=== PATIENT | female | born 1970 | race Asian ===

== ENCOUNTER → 2018-09-24 10:30 | Outpatient (CLI) | payer OTHER, SELFPAY ==
--- NOTE | 2018-09-24 | DI.CT.S_ITS ---
PROCEDURE: CT CERVICAL SPINE WO CON INDICATIONS: SPONDYLOSIS TECHNIQUE: Noncontrast 3 mm thick sections acquired from the skull base to the T4 level. Sagittal and coronal reformats were then constructed. For radiation dose reduction, the following was used: automated exposure control, adjustment of mA and/or kV according to patient size. COMPARISON: [facility], , C-SPINE WITHOUT CONTRAST, 06/04/2016, 13:11. [facility], CR, CERVICAL SPINE 2 OR 3 VIEWS, 08/28/2016, 14:25. FINDINGS: Image quality: Excellent. Bones: No fractures or dislocations. Visualized superior ribs are intact. No suspicious lytic or blastic lesions are seen. Postoperative changes are seen, with an anterior cervical spine fusion plate at the C4-C6 levels. The fusion plate appears well seated. No findings of hardware failure or hardware loosening are seen. Disc spacers are seen throughout the fused region. Soft tissues: Prevertebral soft tissues are normal in thickness. No paravertebral hematomas. No apical pneumothoraces. IMPRESSION: Normal postoperative study. Dictated by: Alexander Lange M.D. on 09/24/2018 at 12:10 Approved by: Alexander Lange M.D. on 09/24/2018 at 12:12
== END ==
PROVIDERS: Visit Provider Orthopaedic Surgery Orthopaedic Surgery of the Spine
DX: M47.22 Other spondylosis with radiculopathy, cervical region (principal); Z98.1 Arthrodesis status
CPT/HCPCS: 72125

== ENCOUNTER 2020-01-06 21:28 | Emergency (ER) | payer OTHER, SELFPAY ==
[2020-01-06 21:44] VITALS: BP 120/72; PULSE 87; RESP 20; TEMP 36.8; O2SAT 97; BMI 23.9
--- NOTE | 2020-01-06 21:51 | ED_ITS ---
HPI - General Adult General Chief complaint: Abdominal Pain Stated complaint: states fibroids is hurting her alot Time Seen by Provider: 01/06/20 21:44 Source: patient Mode of arrival: Ambulatory Limitations: no limitations History of Present Illness HPI narrative: 49-year-old female. History of fibroids. Has had these treated in the past but early this year she was told that the fibroids had returned. She was also diagnosed with an ovarian cyst on the left side earlier this year. She states she was in her normal state health until couple days ago when she started to have left lower quadrant says left upper quadrant pain. Patient is not currently on any control. She states she is having irregular menstrual cycles. She was told that potentially she is premenopausal. She is not currently having any vaginal discharge or bleeding. No urinary symptoms. Has had a in the past. No other abdominal surgeries. Some nausea no vomiting. Has not tried anything for symptoms prior to arrival. Related Data Home Medications Medication Instructions Recorded Confirmed ascorbic acid (vitamin C) 500 mg PO QDAY #0 08/28/16 multivitamin [Multiple Vitamins] 1 tab PO QDAY #0 08/28/16 Previous Rx's Medication Instructions Recorded ACETAMINOPHEN 0 mg PO Q4HP PRN #30 08/29/16 hydroxyzine pamoate [Vistaril] 25 - 50 mg PO Q4HP PRN #30 cap 08/29/16 oxycodone 5 - 10 mg PO Q3HP PRN #60 tab 08/29/16 hydrocodone-acetaminophen [[place]] 1 tab PO Q6H PRN #7 tab 01/06/20 Allergies Allergy/AdvReac Type Severity Reaction Status Date / Time Sulfa (Sulfonamide Allergy Severe ANAPHYLAXIS Verified 01/06/20 21:44 Antibiotics) [SULFA (SULFONAMIDE ANTIBIOTICS)] Review of Systems Constitutional Constitutional: Denies fever(s) and Denies headache(s) ENT Ears, Nose, Mouth, and Throat: Denies headache(s) Cardiovascular Cardiovascular: Denies chest pain and Denies dyspnea Respiratory Respiratory: Denies dyspnea Gastrointestinal Gastrointestinal: Reports abdominal pain, Denies change in bowel habits, Reports nausea and Denies vomiting Genitourinary Genitourinary: Denies dysuria Genitourinary: Denies difficulty voiding, Denies dysuria and Denies pelvic pain Musculoskeletal Musculoskeletal: Denies arthralgias and Denies myalgias Integumentary/Breasts Skin/Breast: Denies rash Neurologic Neurologic: Denies behavioral changes and Denies headache(s) Psychiatric Psychiatric: Denies behavioral changes Hematologic/Lymphatic Hematologic/Lymphatic: Denies easy bleeding and Denies easy bruising Patient History Medical History Cervical spinal stenosis (Inactive) Osteoarthritis of spine with radiculopathy, cervical region (Inactive) Social History Smoking Status: Never smoker Exam Initial Vital Signs Initial Vital Signs: Vital Signs Temperature 98.2 F 01/06/20 21:44 Pulse Rate 87 01/06/20 21:44 Respiratory Rate 20 01/06/20 21:44 Blood Pressure 120/72 01/06/20 21:44 Pulse Oximetry 97 01/06/20 21:44 Const General: cooperative and comfortable Limitations: mental status not altered HENMT Head: normal to inspection and normocephalic Resp Effort & Inspection: normal respiratory effort Auscultation: clear to auscultation bilaterally Cardio Rate: regular rate GI Inspection: non-distended Palpation: soft, No firm and tender (Left upper quadrant/left lower quadrant) Back/Spine/Pelvis Back: No CVA tenderness Skin Lesions: no lesions Rashes: no rashes Neuro General: patient alert and patient awake Cognition: normal cognition Speech: speech normal Extrem General: normal to inspection and capillary refill normal Psych Appearance: grossly normal and well kempt Scores GCS Lina coma scale eye opening: Spontaneous [place] coma scale verbal response: Orientated Lina coma scale motor response: Obey commands Lina coma scale total score: 15 Course Orders Ordered: ED Orders 01/06/20 21:52 CT abdomen pelvis w con Stat 01/06/20 22:00 Complete Blood Count AUTO DIFF Stat Comprehensive Metabolic Panel Stat Lipase Stat Discontinued Medications Hydrocodone Bitart/Acetaminophen (Vicodin 5/325 Prepack) 1 bottle MISC SEEINSTR ONE Stop: 01/06/20 23:56 Last Admin: 01/07/20 00:14 Dose: 1 bottle Documented by: [email or web address] Sodium Chloride (Normal Saline 0.9%) 1,000 mls @ 1,000 mls/hr IV BOLUS ONE Stop: 01/06/20 22:50 Last Infusion: 01/07/20 00:15 Dose: 1,000 mls/hr Documented by: Admin: 01/06/20 22:18 Dose: 1,000 mls/hr Documented by: WILBUR Ketorolac Tromethamine (Toradol) 30 mg IV NOW ONE Stop: 01/06/20 21:52 Last Admin: 01/06/20 22:17 Dose: 30 mg Documented by: WILBUR Morphine Sulfate (Morphine) 4 mg IV NOW ONE Stop: 01/06/20 23:36 Last Admin: 01/06/20 23:44 Dose: 4 mg Documented by: WILBUR Vital Signs Vital signs: Vital Signs - 8 hr 01/06/20 21:44 01/06/20 22:15 01/06/20 23:13 Temperature 98.2 F Pulse Rate 87 90 69 Respiratory Rate 20 16 16 Blood Pressure 120/72 153/86 H 137/84 Pulse Oximetry 97 99 98 01/07/20 00:05 Temperature Pulse Rate 72 Respiratory Rate 16 Blood Pressure 143/73 H Pulse Oximetry 97 Medical Decision Making Lab Data Lab results reviewed: Yes I reviewed the patient's lab results. Result diagrams: 01/06/20 22:00 01/06/20 22:00 Labs: Lab Results 01/06/20 01/06/20 Range/Units 22:00 22:00 WBC 9.3 (4.5-11.0) X10^3/uL RBC 4.20 (4.0-5.2) X10^6/uL Hgb 13.1 (12.0-16.0) g/dL Hct 39.0 (36-46) % MCV 92.8 (80-100) fL MCH 31.0 (26-34) PG MCHC 33.5 (30-36) % RDW 12.7 (11.6-14.8) % Plt Count 264 (150-400) X10^3/uL Neut % (Auto) 60.5 (50-75) % Lymph % (Auto) 28.9 (25-40) % [place] % (Auto) 9.0 (3-14) % Eos % (Auto) 1.3 L (2-4) % Baso % (Auto) 0.3 (0-2) % Neut # (Auto) 5600 (2862-9628) /uL Lymph # (Auto) 2700 (6744-5544) /uL [place] # (Auto) 800 (0-900) /uL Eos # (Auto) 100 (0-450) /uL Baso # (Auto) 0 (0-100) /uL Sodium 140 (137-145) mmol/L Potassium 3.5 (3.4-5.1) mmol/L Chloride 105 (98-107) mmol/L Carbon Dioxide 27 (22-32) mmol/L BUN 17 (7-17) mg/dL Creatinine 0.81 (0.52-1.04) mg/dL Estimated GFR > 60.0 (>60) mL/min BUN/Creatinine Ratio 21.0 (6-22) Glucose 112 H (70-100) mg/dL Calcium 9.5 (8.4-10.2) mg/dL Total Bilirubin 0.4 (0.2-1.3) mg/dL AST 27 (14-36) IU/L ALT 16 (<35) IU/L Alkaline Phosphatase 92 (38-126) U/L Total Protein 7.8 (6.3-8.2) g/dL Albumin 4.3 (3.5-5.0) g/dL Globulin 3.5 (1.7-4.1) g/dL Albumin/Globulin Ratio 1.2 (1.0-2.8) Lipase 153 (23-300) U/L Point of Care Testing Test Results Negative Urine Dip Bedside Urine Glucose Negative Bedside Urine Bilirubin - Negative Bedside Urine Ketone +/- 5 Urine Specific [place] 1.030 Bedside Urine Occult Blood +/- Bedside Urine pH 6.0 Bedside Urine Protein - Negative Bedside Urine Urobilinogen - Negative Bedside Urine Nitrite - Negative Bedside Urine Leukocytes - Negative Esterase Point of care testing: Point of Care Testing Test Results Negative Urine Dip Bedside Urine Glucose Negative Bedside Urine Bilirubin - Negative Bedside Urine Ketone +/- 5 Urine Specific [place] 1.030 Bedside Urine Occult Blood +/- Bedside Urine pH 6.0 Bedside Urine Protein - Negative Bedside Urine Urobilinogen - Negative Bedside Urine Nitrite - Negative Bedside Urine Leukocytes - Negative Esterase Imaging Data CT scan - abdomen/pelvis: Radiologist's Impression: Nonspecific 1 cm right hepatic hypodensity, question cyst versus solid. Recommend follow-up nonemergent ultrasound Large lobar uterus probable fibroids. No acute abnormalities MDM Narrative Medical decision making narrative: Patient's labs are unremarkable. CT scan was ordered secondary to the location of the patient's discomfort which was her left flank and left upper quadrant. This did not 100% fit the diagnosis of fibroids. The CT scan did not show any acute pathology. Does show the uterine fibroids. It also does not show any left-sided ovarian cyst. I did discuss all this with the patient. I also discussed her hepatic findings on the CT scan. She has been told that she has had a cyst in her liver in the past. I did inform her that she needed talk with her primary doctor regarding follow-up with this. She is not currently having any vaginal bleeding. With the lack of definitive findings on the CT scan of feel the patient can be safely discharged home. She does feel better after the pain medication. We did discuss fibroids. We did discuss that she needs to talk with her industrial organization manager doctor about further evaluation and treatment. She was given return precautions and follow-up instructions. She expressed understanding and agreement. Patient's is at bedside for this discussion and he also expressed understanding and agreement. Discharge Plan Departure Patient Disposition: Home Clinical Impression: Uterine fibroid Qualifiers: Uterine leiomyoma location: unspecified location Qualified Code(s): D25.9 - Leiomyoma of uterus, unspecified Abdominal pain Qualifiers: Abdominal location: unspecified location Qualified Code(s): R10.9 - Unspecified abdominal pain Discharge Date/Time: 01/07/20 00:07 Instructions: DI for Uterine Fibroids Activity Restrictions/Additional Instructions: Recommend that you talk with your primary provider and your industrial organization manager provider about potential definitive treatment of the fibroids. Also recommend you talk with your primary provider about the finding on your liver which was incidental. There was a recommendation for a nonemergent follow-up with an ultrasound. Return to the emergency department for any new symptoms Prescriptions: New hydrocodone-acetaminophen [[place]] 5-325 mg tablet 1 tab PO Q6H PRN (Reason: pain) Qty: 7 RF: 0 No Action multivitamin [Multiple Vitamins] 1 EACH tablet 1 tab PO QDAY Qty: 0 RF: 0 ascorbic acid (vitamin C) 500 MG tablet 500 mg PO QDAY Qty: 0 RF: 0 ACETAMINOPHEN 0 mg PO Q4HP PRNQty: 30 RF: 0 oxycodone 5 MG tablet 5 - 10 mg PO Q3HP PRNQty: 60 RF: 0 hydroxyzine pamoate [Vistaril] 25 MG capsule 25 - 50 mg PO Q4HP PRNQty: 30 RF: 0 Referrals: Jovanni Collins MD [Primary Care Provider] -
--- NOTE | 2020-01-06 21:52 | DI.CT.S_ITS ---
PROCEDURE: CT ABDOMEN PELVIS W CON INDICATIONS: Left-sided abdominal pain TECHNIQUE: After the administration of oral and intravenous contrast, 5 mm thick sections acquired from the diaphragms to the symphysis. 5 mm thick coronal and sagittal reformats were performed. For radiation dose reduction, the following was used: automated exposure control, adjustment of mA and/or kV according to patient size. COMPARISON: None. FINDINGS: Image quality: Diagnostic. ABDOMEN: Lung bases: Lung bases are clear. Heart size is normal. Solid organs: Liver is normal in size and contains a small low-attenuation structure involving the posterior segment of the right hepatic lobe, which measures up to approximately 10 mm in transverse dimension and most likely represents a small hepatic cyst. A vague area of decreased attenuation is evident along the falciform ligament of the left hepatic lobe, compatible with a small area of focal fatty infiltration. Gallbladder is decompressed and not adequately evaluated.. Biliary system is non-dilated. Pancreas enhances normally. Spleen is normal in size and enhancement. No adrenal nodules. Kidneys are normal in size and enhancement, without hydronephrosis. A small exophytic cyst is evident involving the mid aspect of the posterior left kidney, measuring up to approximately 2.1 cm in diameter. Peritoneum and bowel: The stomach is unremarkable. The small bowel loops are nondilated. The colon appears to be within normal limits. The no free fluid, loculated fluid collection or free air is evident. There is a small fat containing periumbilical hernia. Nodes and vessels: No retroperitoneal or mesenteric adenopathy. Aorta and inferior vena cava are normal in caliber. Bones: No acute fracture or dislocation is evident. No suspicious osseous lesions are identified. Age-appropriate degenerative changes of the lower lumbar spine are not well characterized. PELVIS: Genitourinary: Bladder wall thickness is normal. The uterus is enlarged and heterogeneous, likely related to multiple uterine fibroids. The ovaries are not enlarged or adequately evaluated. Miscellaneous: No inguinal hernias or adenopathy. No free fluid or loculated fluid collection is appreciated. Incidental note is made of atrophy involving the lower right abdominal rectus muscles. Bones: No suspicious bony lesions. No acute pelvic fractures are identified. IMPRESSION: 1. No acute abnormality within the abdomen or pelvis. 2. No bowel obstruction or inflammation. 3. Enlarged heterogeneous uterus probably is related to multiple uterine fibroids. Pelvic ultrasound may be helpful for better characterization on a nonemergent basis, if indicated. 4. Low attenuation lesion within the liver probably represents a simple cyst. Ultrasound versus MRI may be helpful for better characterization. Note: The preliminary report provided by [facility] is concordant with the final report. Dictated by: Shyam Dunn M.D. on 01/07/2020 at 6:51 Approved by: Shyam Dunn M.D. on 01/07/2020 at 6:57
[2020-01-06 22:15] VITALS: BP 153/86; PULSE 90; RESP 16; O2SAT 99
[2020-01-06] MEDS: KETOROLAC 60 MG/2 ML VIAL 30 MG IV (22:17)
[2020-01-06] MEDS: SODIUM CHLORIDE 0.9% 1,000 ML 1000 ML IV (22:18)
[2020-01-06 22:50] LABS: Add Manual Diff / Slide Review NO; Basophils Absolute Auto 0 /uL (0-100); Basophils Percent Auto 0.3 % (0-2); Eosinophils Absolute Auto 100 /uL (0-450); Eosinophils Percent Auto 1.3 % (2-4); Hemoglobin 13.1 g/dL (12.0-16.0); Lymphocytes Absolute Auto 2700 /uL (1100-4500); Lymphocytes Percent Auto 28.9 % (25-40); Mean Corpuscular HGB Conc 33.5 % (30-36); Mean Corpuscular Volume 92.8 fL (80-100); Monocytes Absolute Auto 800 /uL (0-900); Neutrophils Absolute Auto 5600 /uL (1500-7000); Neutrophils Percent Auto 60.5 % (50-75); Platelet Count 264 X10^3/uL (150-400); Red Cell Distribution Width 12.7 % (11.6-14.8); White Blood Cell Count 9.3 X10^3/uL (4.5-11.0)
[2020-01-06 23:08] LABS: Alanine Aminotransferase 16 IU/L (<35); Albumin 4.3 g/dL (3.5-5.0); Albumin Globulin Ratio 1.2 (1.0-2.8); Alkaline Phosphatase 92 U/L (38-126); Aspartate Aminotransferase 27 IU/L (14-36); Bilirubin Total 0.4 mg/dL (0.2-1.3); Blood Urea Nitrogen 17 mg/dL (7-17); Calcium 9.5 mg/dL (8.4-10.2); Carbon Dioxide 27 mmol/L (22-32); Chloride 105 mmol/L (98-107); Estimated Glomerular Filt Rate > 60.0 mL/min (>60); Globulin 3.5 g/dL (1.7-4.1); Glucose 112 mg/dL (70-100); HEMOLYSIS 18 (0-50); Lipase 153 U/L (23-300); Potassium 3.5 mmol/L (3.4-5.1); Sodium 140 mmol/L (137-145); Total Protein 7.8 g/dL (6.3-8.2)
[2020-01-06 23:13] VITALS: BP 137/84; PULSE 69; RESP 16; O2SAT 98
[2020-01-06] MEDS: MORPHINE 4 MG/ML INJ IV (23:44)
[2020-01-07 00:05] VITALS: BP 143/73; PULSE 72; RESP 16; O2SAT 97
[2020-01-07] MEDS: HYDROCODONE/ACET 5/325 PREPACK 1 BOTTLE MISC (00:14)
== END 2020-01-07 00:07 | disposition home or self-care (01) ==
PROVIDERS: Emergency Provider Emergency Medicine
DX: D25.9 Leiomyoma of uterus, unspecified (principal); R10.9 Unspecified abdominal pain; R11.0 Nausea
CPT/HCPCS: 36415; 74177; 80053; 81003; 81025; 83690; 85025; 96361; 96374; 96375; 99284; 99285; J1885; J2270; Q9967

== ENCOUNTER 2020-02-17 15:06 | Emergency (ER) | payer OTHER, SELFPAY ==
[2020-02-17 15:11] VITALS: BP 115/56; PULSE 60; RESP 14; TEMP 36.8; O2SAT 99; BMI 23.9
[2020-02-17 16:35] LABS: Add Manual Diff / Slide Review NO; Basophils Absolute Auto 100 /uL (0-100); Basophils Percent Auto 0.5 % (0-2); Eosinophils Absolute Auto 200 /uL (0-450); Eosinophils Percent Auto 1.9 % (2-4); Hematocrit 39.9 % (36-46); Hemoglobin 13.2 g/dL (12.0-16.0); Lymphocytes Absolute Auto 3200 /uL (1100-4500); Lymphocytes Percent Auto 28.3 % (25-40); Mean Corpuscular HGB Conc 32.9 % (30-36); Mean Corpuscular Hemoglobin 30.6 PG (26-34); Monocytes Absolute Auto 800 /uL (0-900); Monocytes Percent Auto 7.1 % (3-14); Neutrophils Absolute Auto 7000 /uL (1500-7000); Neutrophils Percent Auto 62.2 % (50-75); Platelet Count 302 X10^3/uL (150-400); Red Blood Cell Count 4.29 X10^6/uL (4.0-5.2); Red Cell Distribution Width 12.6 % (11.6-14.8); White Blood Cell Count 11.3 X10^3/uL (4.5-11.0)
--- NOTE | 2020-02-17 16:42 | PC.NURSE ---
Patient states that she is having side pain. She says that it comes and goes for the last 3 days. She stated she wakes up in morning and has to poop. The pain does not disappear with bowel movements.
[2020-02-17 16:46] LABS: Prothrombin Time 11.7 SECONDS (10.1-12.7)
[2020-02-17 16:49] LABS: PTT Partial Thromboplastin Tim 36 SECONDS (26.4-36.2)
[2020-02-17 16:50] LABS: Alanine Aminotransferase 15 IU/L (<35); Alkaline Phosphatase 72 U/L (38-126); Aspartate Aminotransferase 24 IU/L (14-36); BUN Creatinine Ratio 22.8 (6-22); Bilirubin Total 0.5 mg/dL (0.2-1.3); Blood Urea Nitrogen 13 mg/dL (7-17); Carbon Dioxide 23 mmol/L (22-32); Chloride 106 mmol/L (98-107); Estimated Glomerular Filt Rate > 60.0 mL/min (>60); Glucose 91 mg/dL (70-100); HEMOLYSIS 23 (0-50); Lipase 126 U/L (23-300); Potassium 4.1 mmol/L (3.4-5.1); Sodium 137 mmol/L (137-145)
--- NOTE | 2020-02-17 16:57 | DI.US.S_ITS ---
PROCEDURE: US PELVIC COMPLETE INDICATIONS: FIBROIDS AND PAIN TECHNIQUE: Real-time scanning was performed of the pelvic organs, with image documentation. Additional endovaginal scanning was necessary due to incomplete visualization of the adnexal and endometrial structures by transabdominal scanning. COMPARISON: [facility], US, US PELVIC COMPLETE, 01/25/2020, 11:39. FINDINGS: Transabdominal scanning: Limited scanning through the kidneys shows no hydronephrosis. No pathologic free abdominal or pelvic fluid. Endovaginal scanning: Uterus: Uterus is normal in size at 16.5 x 7.2 x 6.8 cm. The endometrium measures 10.7 mm in combined thickness. Multiple fibroids are present. Largest are within the right posterior uterus within the intramural location measuring 35 mm, within the mid posterior intramural location measuring 22 mm, and within the left in subserosal location measuring 24 mm. Ovaries: Hemorrhagic cyst within the left ovary measuring 19 mm, and otherwise within normal limits bilaterally IMPRESSION: 1. Uterine fibroids. Patient may be a candidate for uterine fibroid embolization. Interventional radiology consultation could be obtained with Dr. Mcallister at [facility], if clinically indicated. Dictated by: David Mcallister M.D. on 02/17/2020 at 18:47 Approved by: David Mcallister M.D. on 02/17/2020 at 18:49
--- NOTE | 2020-02-17 17:01 | ED_ITS ---
HPI - Female Genitourinary General Chief complaint: Urogenital-Female Stated complaint: LEFT SIDE PAIN PELVIC Time Seen by Provider: 02/17/20 15:49 Source: patient Mode of arrival: Ambulatory Limitations: no limitations History of Present Illness HPI Narrative: Patient is a 49-year-old female who has a history of fibroids an ongoing pelvic pain presenting today with pelvic pain worsening over the last 3 days. She apparently is supposed to go to pelvic therapy to help with her pain she was told that not all of her pain is from her fibroids. She denies any vaginal bleeding she said last month she had about 10 days but she currently is not having any. She denies fever chills nausea or vomiting. She is out of her narcotic medications she was told that cannot be refilled unless if she comes to the emergency department. MD Complaint: pelvic pain Related Data Home Medications Medication Instructions Recorded Confirmed ascorbic acid (vitamin C) 500 mg PO QDAY #0 08/28/16 01/25/20 multivitamin [Multiple Vitamins] 1 tab PO QDAY #0 08/28/16 01/25/20 Allergies Allergy/AdvReac Type Severity Reaction Status Date / Time Sulfa (Sulfonamide Allergy Severe ANAPHYLAXIS Verified 01/25/20 11:08 Antibiotics) [SULFA (SULFONAMIDE ANTIBIOTICS)] Review of Systems Review of Systems Narrative: GENERAL: Denies chills, fatigue, malaise, fever, sweats, travel HEENT: Denies sinus pain, ear pain, sore throat, difficulty swallowing, neck pain RESPIRATORY: Denies dyspnea, cough, wheezing, hemoptysis, sputum. CARDIOVASCULAR: Denies chest pain, palpitations, orthopnea, edema GASTROINTESTINAL: Denies nausea, vomiting, abdominal pain, diarrhea, constipation, melena. : See HPI MUSCULOSKELETAL: Denies weakness, joint pain, or bony pain SKIN: No rash, no erythema, no pruritus NEUROLOGIC: Denies weakness, dizziness, headache, numbness, change in speech, confusion PSYCHIATRIC: No concerning psychosocial issues. 12 point review of systems is negative except for those stated above and HPI Patient History Medical History (Updated 02/17/20 @ 19:09 by Belem Gore DO) Cervical spinal stenosis (Inactive) Chronic pelvic pain in female (Acute) Osteoarthritis of spine with radiculopathy, cervical region (Inactive) alcohol intake frequency: 0-2 drinks per day Substance Use Type: does not use Exam Initial Vital Signs Initial Vital Signs: Vital Signs Temperature 98.3 F 02/17/20 15:11 Pulse Rate 60 02/17/20 15:11 Respiratory Rate 14 02/17/20 15:11 Blood Pressure 115/56 L 02/17/20 15:11 Pulse Oximetry 99 02/17/20 15:11 GENERAL: Well-appearing, well-nourished and in no acute distress. HEENT: Head atraumatic,EOMI, pupils reactive, face symmetric, moist mucous membranes CARDIOVASCULAR: Regular rate and rhythm without murmurs, rubs or gallops. RESPIRATORY: Breath sounds equal bilaterally, no wheezes rales or rhonchi. ABDOMEN: Soft, mild lower abdominal pain more left than right-sided no guarding no rebounds EXTREMITIES: Normal range of motion, no clubbing or edema. Neurovascularly intact NEUROLOGICAL: Alert and oriented x4.Normal gait and speech. Cranial nerves II through XII grossly intact. SKIN: Warm, dry, no laceration, no petechiae, no rashes or lesions. Course Orders Ordered: Discontinued Medications Ketorolac Tromethamine (Toradol) 30 mg IV NOW ONE Stop: 02/17/20 16:58 Last Admin: 02/17/20 17:22 Dose: 30 mg Documented by: KATELYN Vital Signs Vital signs: Vital Signs - 8 hr 02/17/20 15:11 02/17/20 17:44 02/17/20 18:00 Temperature 98.3 F Pulse Rate 60 67 72 Respiratory Rate 14 Blood Pressure 115/56 L 126/76 128/76 Pulse Oximetry 99 100 99 MDM - Female Genitourinary Lab Data Attestation: I reviewed the patient's lab results. Result diagrams: 02/17/20 16:28 02/17/20 16:28 Labs: Lab Results 02/17/20 02/17/20 02/17/20 Range/Units 16:28 16:28 16:28 WBC 11.3 H (4.5-11.0) X10^3/uL RBC 4.29 (4.0-5.2) X10^6/uL Hgb 13.2 (12.0-16.0) g/dL Hct 39.9 (36-46) % MCV 93.0 (80-100) fL MCH 30.6 (26-34) PG MCHC 32.9 (30-36) % RDW 12.6 (11.6-14.8) % Plt Count 302 (150-400) X10^3/uL Neut % (Auto) 62.2 (50-75) % Lymph % (Auto) 28.3 (25-40) % [place] % (Auto) 7.1 (3-14) % Eos % (Auto) 1.9 L (2-4) % Baso % (Auto) 0.5 (0-2) % Neut # (Auto) 7000 (6324-3065) /uL Lymph # (Auto) 3200 (8763-3570) /uL [place] # (Auto) 800 (0-900) /uL Eos # (Auto) 200 (0-450) /uL Baso # (Auto) 100 (0-100) /uL PT 11.7 (10.1-12.7) SECONDS INR 1.0 (0.9-1.3) APTT 36 (26.4-36.2) SECONDS Sodium 137 (137-145) mmol/L Potassium 4.1 (3.4-5.1) mmol/L Chloride 106 (98-107) mmol/L Carbon Dioxide 23 (22-32) mmol/L BUN 13 (7-17) mg/dL Creatinine 0.57 (0.52-1.04) mg/dL Estimated GFR > 60.0 (>60) mL/min BUN/Creatinine Ratio 22.8 H (6-22) Glucose 91 (70-100) mg/dL Calcium 9.0 (8.4-10.2) mg/dL Total Bilirubin 0.5 (0.2-1.3) mg/dL AST 24 (14-36) IU/L ALT 15 (<35) IU/L Alkaline Phosphatase 72 (38-126) U/L Total Protein 8.0 (6.3-8.2) g/dL Albumin 4.0 (3.5-5.0) g/dL Globulin 4.0 (1.7-4.1) g/dL Albumin/Globulin Ratio 1.0 (1.0-2.8) Lipase 126 (23-300) U/L Point of Care Testing Test Results Negative Urine Dip Bedside Urine Glucose Negative Bedside Urine Bilirubin - Negative Bedside Urine Ketone +/- 5 Urine Specific [place] 1.025 Bedside Urine Occult Blood - Negative Bedside Urine pH 6.0 Bedside Urine Protein - Negative Bedside Urine Urobilinogen - Negative Bedside Urine Nitrite - Negative Bedside Urine Leukocytes - Negative Esterase Imaging Data US - RECORDING CLERK: Radiologist's Impression: PROCEDURE: US PELVIC COMPLETE INDICATIONS: FIBROIDS AND PAIN TECHNIQUE: Real-time scanning was performed of the pelvic organs, with image documentation. Additional endovaginal scanning was necessary due to incomplete visualization of the adnexal and endometrial structures by transabdominal scanning. COMPARISON: [facility], , US PELVIC COMPLETE, 01/25/2020, 11:39. FINDINGS: Transabdominal scanning: Limited scanning through the kidneys shows no hydronephrosis. No pathologic free abdominal or pelvic fluid. Endovaginal scanning: Uterus: Uterus is normal in size at 16.5 x 7.2 x 6.8 cm. The endometrium measures 10.7 mm in combined thickness. Multiple fibroids are present. Largest are within the right posterior uterus within the intramural location measuring 35 mm, within the mid posterior intramural location measuring 22 mm, and within the left in subserosal location measuring 24 mm. Ovaries: Hemorrhagic cyst within the left ovary measuring 19 mm, and otherwise within normal limits bilaterally IMPRESSION: 1. Uterine fibroids. Patient may be a candidate for uterine fibroid embolization. Interventional radiology consultation could be obtained with Dr. Mcallister at [facility], if clinically indicated. Dictated by: David Mcallister M.D. on 02/17/2020 at 18:47 Approved by: David Mcallister M.D. on 02/17/2020 at 18:49 MDM Narrative Medical decision making narrative: Patient's pain is relieved with Toradol. She has no active vaginal bleeding at this time she has known uterine fibroids and chronic ongoing pelvic pain she comes with a folder with exercises for pelvic therapy. I recommend she do the exercises as recommended and follow up with her physicians for refill of her narcotic medications. Discharge Plan Departure Patient Disposition: Home Clinical Impression: Chronic pelvic pain in female Fibroid uterus Qualifiers: Uterine leiomyoma location: unspecified location Qualified Code(s): D25.9 - Leiomyoma of uterus, unspecified Discharge Date/Time: 02/17/20 19:25 Instructions: Uterine Fibroids, Chronic Pelvic Pain-Female Activity Restrictions/Additional Instructions: *You have been diagnosed with chronic pelvic pain uterine fibroid *What to do: At this time blood work is overall reassuring still have uterine fibroids. I recommend that you follow-up in participate in pelvic therapy. If urine needed more pain medication he need to ask your provider who is following you for this pain *Continue to take medications as directed Ibuprofen 800 mg every 8 hours if needed for [id number] pain with food *Follow up with your primary care provider in 2-3 days *Return to ER if you should have heavy vaginal bleeding more than 2 pads an hour, severe intense abdominal pain or any new, worsening or concerning symptoms Prescriptions: No Action multivitamin [Multiple Vitamins] 1 EACH tablet 1 tab PO QDAY Qty: 0 RF: 0 ascorbic acid (vitamin C) 500 MG tablet 500 mg PO QDAY Qty: 0 RF: 0 Referrals: Jovanni Collins MD [Primary Care Provider] -
[2020-02-17] MEDS: KETOROLAC 60 MG/2 ML VIAL 30 MG IV (17:22)
[2020-02-17 17:44] VITALS: BP 126/76; PULSE 67; O2SAT 100
[2020-02-17 18:00] VITALS: BP 128/76; PULSE 72; O2SAT 99
[2020-02-17 19:24] VITALS: BP 122/80; PULSE 82; RESP 14; O2SAT 99
== END 2020-02-17 19:25 | disposition home or self-care (01) ==
PROVIDERS: Emergency Provider Emergency Medicine
DX: D25.9 Leiomyoma of uterus, unspecified (principal); R10.2 Pelvic and perineal pain
CPT/HCPCS: 36415; 76830; 76856; 80053; 81003; 81025; 83690; 85025; 85610; 85730; 96374; 99284; J1885

== ENCOUNTER 2020-02-20 12:16 | Emergency (ER) | payer OTHER, SELFPAY ==
[2020-02-20 12:17] VITALS: BP 126/62; PULSE 78; RESP 14; TEMP 36.2; O2SAT 98; BMI 23.9
--- NOTE | 2020-02-20 15:11 | ED.EXTPRO ---
HPI - Extremity Problem General Chief complaint: Extremity Problem,Nontraumatic Stated complaint: was seen last week, pinching in arm Time Seen by Provider: 02/20/20 14:58 Source: patient Mode of arrival: Ambulatory Limitations: no limitations History of Present Illness HPI Narrative: 49-year-old woman with a history of uterine fibroids abnormal periods and pelvic pain presents with left arm pain. She was seen last Thursday for the initial fibroid complaint 3 attempts at an IV were undertaken and the 1 in the mid forearm apparently hit a nerve in she has continued to have neuropathic pain from that site. She has tried 400 mg of ibuprofen a single time and has tried hot and cold packs but is still having pain. She isn't describing fevers there is no cellulitis and no phlebitis appreciated. Related Data Home Medications Medication Instructions Recorded Confirmed ascorbic acid (vitamin C) 500 mg PO QDAY #0 08/28/16 01/25/20 multivitamin [Multiple Vitamins] 1 tab PO QDAY #0 08/28/16 01/25/20 Allergies Allergy/AdvReac Type Severity Reaction Status Date / Time Sulfa (Sulfonamide Allergy Severe ANAPHYLAXIS Verified 01/25/20 11:08 Antibiotics) [SULFA (SULFONAMIDE ANTIBIOTICS)] Review of Systems Review of Systems Narrative: Pertinent positive and negative findings as per HPI Remainder of review of systems is otherwise unremarkable for Constitutional: Fevers, chills, weakness ENT: No sore throat, neck pain, ear pain CV: Chest pain, palpitations, dyspnea on exertion Respiratory: Cough, wheeze, dyspnea Patient History Medical History Cervical spinal stenosis (Inactive) Chronic pelvic pain in female (Acute) Fibroid uterus (Acute) Osteoarthritis of spine with radiculopathy, cervical region (Inactive) Social History Smoking Status: Never smoker Smoking Status: Never smoker alcohol intake frequency: 0-2 drinks per day Substance Use Type: does not use Exam Narrative Exam Narrative: General: Alert appropriate in no acute distress Respiratory: Able to speak in full sentences, no obvious respiratory distress Skin: No obvious rashes, warm and dry Neurologic: Grossly intact no obvious asymmetries or abnormalities Psych, appropriate insight and affect, cooperative Extremity: Left upper extremity is reviewed. The IV site on the dorsum of her hand is healing nicely. There is a small puncture wound in the ventral side of her forearm around which the neuropathic pain is most troublesome. There is no thrombophlebitis palpable, no abscess and no cellulitis. She has a small bruise at her antecubital fossa were an IV was finally obtained and again no acute findings and the site appears to be healing nicely Initial Vital Signs Initial Vital Signs: Vital Signs Temperature 97.1 F L 02/20/20 12:17 Pulse Rate 78 02/20/20 12:17 Respiratory Rate 14 02/20/20 12:17 Blood Pressure 126/62 02/20/20 12:17 Pulse Oximetry 98 02/20/20 12:17 Course Vital Signs Vital signs: Vital Signs - 8 hr 02/20/20 12:17 02/20/20 15:16 Temperature 97.1 F L Pulse Rate 78 69 Respiratory Rate 14 14 Blood Pressure 126/62 124/74 Pulse Oximetry 98 98 MDM - Extremity (Nontraumatic) MDM Narrative Medical decision making narrative: Four days after IV placement she is having neuropathic pain at 1 of the sites. No acute findings or thrombophlebitis appreciated. Reassurance is given reviewed use of hot compresses as well as ibuprofen and Tylenol to help control the pain while the site heals Discharge Plan Departure Patient Disposition: Home Clinical Impression: Complication of intravenous catheter site Activity Restrictions/Additional Instructions: Thank you for coming in today The IV that was attempted last Thursday does appear to have touched a nerve in the middle of your forearm and this is causing pain. At this time, there is no evidence of infection or superficial blood clot. This can sometimes be a complication with IV placements and your body will heal it, you simply need to allow a bit more time Using 400 mg of ibuprofen (2 [id number] pills) and 1 Tylenol every 6 hours can be very helpful in controlling pain. Using hot packs to the tender spot in the mid forearm may also be helpful Good luck with the fibroid issues. Prescriptions: No Action multivitamin [Multiple Vitamins] 1 EACH tablet 1 tab PO QDAY Qty: 0 RF: 0 ascorbic acid (vitamin C) 500 MG tablet 500 mg PO QDAY Qty: 0 RF: 0 Referrals: Jovanni Collins MD [Primary Care Provider] -
[2020-02-20 15:16] VITALS: BP 124/74; PULSE 69; RESP 14; O2SAT 98
[2020-02-20 15:35] VITALS: PULSE 70
== END 2020-02-20 15:38 | disposition home or self-care (01) ==
PROVIDERS: Emergency Provider Emergency Medicine
DX: T80.90XA Unspecified complication following infusion and therapeutic injection, initial encounter (principal)
CPT/HCPCS: 99281